=== PATIENT | female | born 1995 | race Caucasian/White ===

== ENCOUNTER 2017-06-30 08:56 | Emergency (ER) | payer BC ==
[~2017-06-30] VITALS: Ht 165.1 cm; Wt 68.2 kg
[2017-06-30 09:01] VITALS: BP 137/98; PULSE 91; TEMP 98.6
[2017-06-30] MEDS ORDERED: TRIAMCINOLONE A15 G1 TP (09:26)
[2017-06-30] MEDS ORDERED: LAMISIL1% TOP (09:26)
== END 2017-06-30 09:34 | disposition home or self-care (01) ==
LOC: COL.ER 08:56
DX: R21 Rash and other nonspecific skin eruption (principal)

== ENCOUNTER 2017-11-10 07:01 | Emergency (ER) | payer BC ==
[~2017-11-10] VITALS: Ht 165.1 cm; Wt 63.6 kg
[~2017-11-10 07:01] MED LIST: LAMISIL1% TOP; TRIAMCINOLONE A15 G1 TP
[2017-11-10 07:06] VITALS: BP 133/71
[2017-11-10] MEDS ORDERED: DEPO-PROVE150 MG/1 M IM (07:09)
[2017-11-10 08:48] VITALS: PULSE 58; TEMP 98.2
== END 2017-11-10 08:37 | disposition home or self-care (01) ==
LOC: COL.ER 07:01
DX: S61.512A Laceration without foreign body of left wrist, initial encounter (principal); W26.0XXA Contact with knife, initial encounter; Y92.009 Unspecified place in unspecified non-institutional (private) residence as the place of occurrence of the external cause

== ENCOUNTER → 2017-11-20 | Emergency (ER) | payer BC ==
[~2017-11-20] MED LIST changes: +DEPO-PROVE150 MG/1 M IM
[2017-11-20 16:21] VITALS: BP 133/79; PULSE 64; TEMP 99.2
== END ==
LOC: COL.ER 16:18
DX: S51.812D Laceration without foreign body of left forearm, subsequent encounter (principal); X58.XXXD Exposure to other specified factors, subsequent encounter

== ENCOUNTER 2022-03-11 11:32 | Emergency (ER) | payer OTHER ==
[~2022-03-11] VITALS: Ht 160 cm; Wt 68.2 kg
[2022-03-11 11:57] VITALS: BP 131/75; TEMP 98.6
[2022-03-11 13:04] VITALS: PULSE 71
== END 2022-03-11 13:12 | disposition home or self-care (01) ==
LOC: COL.ER 11:32
DX: L02.416 Cutaneous abscess of left lower limb (principal)